=== PATIENT | female | born 1955 | race Caucasian/White ===

== ENCOUNTER 2022-07-25 13:17 | Outpatient (CLI) | payer MEDICARE, OTHER, SELFPAY ==
--- NOTE | ~2022-07-25 | MM_ITS ---
EXAMINATION: MM diagnostic andrew BI w jessica HISTORY: Left lateral breast pain. History of prior left partial mastectomy for breast cancer in 2014 TECHNIQUE: ML, MLO and CC 3-D tomosynthesis images of both breasts were performed and synthetic 2-D i mages were generated. CAD analysis was submitted and interpreted. COMPARISON: None BREAST PARENCHYMAL COMPOSITION: There are scattered areas of fibroglandular density. FINDINGS: There is postsurgical change in the posterior mid to upper outer left breast from partial m astectomy for history of breast cancer. There is architectural distortion, overlying retraction and b enign calcifications including calcified fat necrosis. No suspicious mass or architectural distortion is noted elsewhere. No malignant calcification or skin thickening or retraction is noted otherwise. IMPRESSION: 1. Probable postoperative changes in posterior mid to upper outer left breast from partial mastectomy for breast cancer 2. Comparison with prior mammographic examinations is recommended BI-RADS Category 0: Incomplete: Needs additional imaging evaluation.; Recommend comparison with prior mammogram examinations Reviewed, dictated and finalized at location A. EN [employer] IMPRESSION: 1. Probable postoperative changes in posterior mid to upper outer left breast f rom partial mastectomy for breast cancer 2. Comparison with prior mammographic examinations is recommended BI-RADS Category 0: Incomplete: Needs additional imaging evaluation.; Recommend comparison with prior mammogram examinations
== END 2022-07-25 13:18 | disposition home or self-care (01) ==
LOC: ANHIMG 13:25
DX: C50.912 Malignant neoplasm of unspecified site of left female breast (principal); N64.4 Mastodynia; Z85.3 Personal history of malignant neoplasm of breast
CPT/HCPCS: 77062; 77066; G0279

== ENCOUNTER 2023-04-14 14:25 | Outpatient (CLI) | payer MEDICARE, OTHER, SELFPAY ==
--- NOTE | ~2023-04-14 | MM_ITS ---
EXAMINATION: MM screening andrew BI w jessica HISTORY: Screening mammogram, history of left breast cancer and family history of breast cancer in he r sister TECHNIQUE: Craniocaudal and mediolateral oblique 3-D tomosynthesis images were obtained and synthetic 2-D images were generated. CAD analysis was submitted and interpreted. COMPARISON: 07/25/2022, 01/26/2022, 01/20/2021 BREAST PARENCHYMAL COMPOSITION: There are scattered areas of fibroglandular density. FINDINGS: Stable lumpectomy changes are noted in the outer left breast. No suspicious mass, calcifica tion, or architectural distortion are identified in either breast to suggest malignancy. There has be en no suspicious interval change. IMPRESSION: 1. No mammographic evidence of malignancy. 2. Recommend routine screening mammography in one year. BI-RADS Category 2: Benign finding(s). Reviewed, dictated and finalized at location A.
== END 2023-04-14 14:26 | disposition home or self-care (01) ==
LOC: ANHIMG 14:30
PROVIDERS: PCP Family Medicine; Visit Provider Family Medicine
DX: Z12.31 Encounter for screening mammogram for malignant neoplasm of breast (principal)
CPT/HCPCS: 77063; 77067